=== PATIENT | male | born 1950 | race Caucasian/White ===

== ENCOUNTER 2017-03-31 15:38 | Observation (INO) | payer SELFPAY ==
[~2017-03-31] VITALS: Ht 177.8 cm; Wt 152.2 kg
[2017-03-31] VITALS (77 sets, daily range): BP systolic 149; BP diastolic 86; PULSE 64–70; TEMP 98.1–98.9; O2SAT 87–99
[~2017-03-31 15:38] MED LIST: ALBUTEROL0.83 MG/ML PO; ASPIRIN E.C. 8181 MG PO; ATARAX 25MG25 MG/TAB PO; BUSPAR10 MG PO; COREG12.5 MG PO; DESYREL 100MG100 MG PO; DULERA1 ARO IH; FERROUS SU325 MG/TAB PO; HCTZ 25MG TAB25 MG PO; LEVEMIR100 U/ML SQ; LIPITOR 10MG10 MG PO; MOBIC15 MG PO; NORVASC 10MG10 MG PO; NOVOLOG 100U100 U/M1 SQ; PERCOCET 325 MG1 TAB PO; PRILOSEC 20MG20 MG PO; PROAIR HFA0.09 MG/AC IH; SINGULAIR 110 MG/TAB PO; ZETIA 10MG TAB10 MG PO; ZOLOFT 100MG100 MG PO; ZYRTEC 10MG10 MG PO
[2017-03-31 16:16] LABS: BASO # 0.1 (0.0-0.2); BASO % 0.9 % (0.0-2.0); EOS # 0.3 (0.0-0.7); EOS % 4.7 % (0-4.0); GRAN # 3.6 (1.4-6.5); GRAN % 66.9 % (42.2-75.2); LYMPH # 1.1 (1.2-3.4); MEAN CELL VOLUME 70 fl (80.0-100.0); MEAN CORPUSCULAR HGB CONC 28 g/dl (33.0-37.0); MEAN PLATELET VOLUME 10.4 fl (7.4-10.4); MONO # 0.4 (0.1-0.6); MONO % 7.3 % (1.7-9.3); PLATELET COUNT 188 K/mm3 (130-400); RED BLOOD COUNT 4.51 M/mm3 (4.20-5.60); REDCELL DISTRIBUTION WIDTH-CV 20.9 % (11.5-14.5); WHITE BLOOD COUNT 5.3 K/mm3 (4.8-10.8)
[2017-03-31 16:20] LABS: PROTHROMBIN TIME 11.2 SECONDS (9.7-12.8)
[2017-03-31 16:21] LABS: HEMATOCRIT 31.6 % (42.0-52.0); HEMOGLOBIN 8.7 g/dl (13.5-18.0); MEAN CORPUSCULAR HEMOGLOBIN 19 pg (27.0-31.0)
[2017-03-31 16:23] LABS: PARTIAL THROMBOPLASTIN TIME 17.9 SECONDS (26.0-37.0)
[2017-03-31 16:24] LABS: ADJUSTED CALCIUM 8.7 mg/dL (8.4-10.2); ALANINE AMINOTRANSFERASE 21 U/L (21-72); ALBUMIN 3.9 gm/dL (3.5-5.0); ALKALINE PHOSPHATASE 87 U/L (50-136); ANION GAP 15 mmol/L (7-16); BILIRUBIN,TOTAL 0.6 mg/dL (0.0-1.0); BLOOD UREA NITROGEN 10 mg/dL (9-20); CALCIUM 8.6 mg/dL (8.4-10.2); CARBON DIOXIDE 31 mmol/L (22-30); CHLORIDE 95 mmol/L (98-107); CREATININE, serum 0.69 mg/dL (0.66-1.25); GLUCOSE 237 mg/dL (74-106); POTASSIUM 3.3 mmol/L (3.4-5.0); SODIUM 141 mmol/L (137-145); TOTAL PROTEIN 6.6 gm/dL (6.4-8.2)
[2017-03-31] MEDS ORDERED: PROVENTIL0.09 MG/A1 IH (16:30)
[2017-03-31] MEDS ORDERED: RT ADVAIR 128 DISKUS IH (16:30)
[2017-03-31 16:36] LABS: TROPONIN-I < 0.012 ng/mL (0.000-0.034)
[2017-04-01] VITALS (736 sets, daily range): BP systolic 114–142; BP diastolic 54–92; PULSE 50–60; TEMP 97.8–98.5; O2SAT 72–100
[2017-04-01 06:04] LABS: MEAN CELL VOLUME 69 fl (80.0-100.0); MEAN CORPUSCULAR HGB CONC 28 g/dl (33.0-37.0); MEAN PLATELET VOLUME 9.5 fl (7.4-10.4); PLATELET COUNT 157 K/mm3 (130-400); REDCELL DISTRIBUTION WIDTH-CV 21.3 % (11.5-14.5); WHITE BLOOD COUNT 5.2 K/mm3 (4.8-10.8)
[2017-04-01 06:07] LABS: HEMATOCRIT 29.6 % (42.0-52.0); HEMOGLOBIN 8.3 g/dl (13.5-18.0); MEAN CORPUSCULAR HEMOGLOBIN 19 pg (27.0-31.0)
[2017-04-01 06:13] LABS: INR 1.2 (0.8-3.0); PROTHROMBIN TIME 13.3 SECONDS (9.7-12.8)
[2017-04-01 06:20] LABS: ADJUSTED CALCIUM 8.9 mg/dL (8.4-10.2); ALANINE AMINOTRANSFERASE 25 U/L (21-72); ALBUMIN 3.3 gm/dL (3.5-5.0); ALKALINE PHOSPHATASE 91 U/L (50-136); ANION GAP 11 mmol/L (7-16); BILIRUBIN,TOTAL 0.6 mg/dL (0.0-1.0); BLOOD UREA NITROGEN 8 mg/dL (9-20); CALCIUM 8.3 mg/dL (8.4-10.2); CARBON DIOXIDE 30 mmol/L (22-30); CHLORIDE 97 mmol/L (98-107); CHOLESTEROL 101 mg/dL (120-200); GLUCOSE 157 mg/dL (74-106); HDL CHOLESTEROL 26 mg/dL; LDL CHOLESTEROL 57 mg/dL; POTASSIUM 3.4 mmol/L (3.4-5.0); SODIUM 138 mmol/L (137-145); TOTAL PROTEIN 5.8 gm/dL (6.4-8.2); TRIGLYCERIDE 89 mg/dL
[2017-04-01 06:29] LABS: TOTAL IRON BINDING CAPACITY 414 ug/dL (261-462)
== END 2017-04-01 12:50 | disposition home or self-care (01) ==
LOC: COL.ER 15:38 → MEDICAL 18:21 → ICU 22:18
PROVIDERS: Family Medicine; Internal Medicine
DX: R55 Syncope and collapse (principal); I10 Essential (primary) hypertension; E11.9 Type 2 diabetes mellitus without complications; E78.5 Hyperlipidemia, unspecified; I25.2 Old myocardial infarction; J45.909 Unspecified asthma, uncomplicated; E78.6 Lipoprotein deficiency; E66.01 Morbid (severe) obesity due to excess calories; M19.90 Unspecified osteoarthritis, unspecified site; F32.9 Major depressive disorder, single episode, unspecified; F41.9 Anxiety disorder, unspecified; Z96.653 Presence of artificial knee joint, bilateral; Z95.818 Presence of other cardiac implants and grafts; Z79.4 Long term (current) use of insulin; Z83.3 Family history of diabetes mellitus; Z82.3 Family history of stroke; Z82.49 Family history of ischemic heart disease and other diseases of the circulatory system
CPT/HCPCS: 99239; G0378; J1650; J1815